=== PATIENT | male | born 1995 | race Caucasian/White ===

== ENCOUNTER 2016-10-20 11:04 | Emergency (ER) | payer OTHER ==
[2016-10-20 11:11] VITALS: BP 138/81; BMI 33.0
[2016-10-20] MEDS ORDERED: NORFLEX INJ IM ONE (13:15)
[2016-10-20] MEDS ORDERED: TORADOL 60 MG VIAL IM ONE (13:15)
--- NOTE | 2016-10-20 13:15 | DR.GENAD ---
HPI - PCP Primary Care Physician: ANKITA - HPI Comment HPI Comment: PATIENT HAVING INCREASING PAIN SINCE INJURY. NO HISTORY OF BACK PROBLEMS. NO DYSURIA. - Complaint/Symptoms Chief Complaint Doctors Comments: LOWER BACK PAIN. PATIENT INJURED BACK LIFTING AT WORK TODAY. Chief Complaint:: BACK PAIN, PT STATES HE HURT HIS BACK AT WORK LIFTING A CRATE - Nurses notes reviewed Nurses Notes Review: Yes - Source History Provided: Patient - Mode of Arrival Mode of Arrival: Ambulatory - Timing Onset of Chief Complaint: 10/20/16 Came on: Suddenly - Duration Duration: Constant Duration: Hours - Severity Severity: Moderate PMH - PMH Past Medical History: No Past Surgical History: Yes Surgical History: Cholecystectomy, Tonsillectomy - Family History History of Family Medical Conditions: Yes Family Medical History: Diabetes Mellitus - Social History Does patient currently use any type of tobacco product: Yes Have you used tobacco products in the last 12 months: Yes Type of Tobacco Use: Cigarettes How many years tobacco product used: 1 Does any household member use tobacco: No Alcohol Use: Rarely Do you use any recreational Drugs:: No Lives With: Family Lives Where: Home - infectious screening In the last 2 months have you had wt loss of >10#?: NO Have you had fever, night sweats or hemotysis?: No Have you traveled outside the country in the last 6 months?: No Isolation: Standard ROS - Review of Systems Constitutional: No Symptoms Reported Eyes: No Symptoms Reported ENTM: No Symptoms Reported Respiratoy: No Symptoms Reported Cardiovascular: No Symptoms Reported Gastrointestinal/Abdominal: No Symptoms Reported Genitourinary: No Symptoms Reported Neurological: No Symptoms Reported Musculoskeletal: Back Pain, Back (LOWER BACK PAIN) Integumentary: No Symptoms Reported Hematologic/Lymphatic: No Symptoms Reported Endocrine: No Symptoms Reported All Other Systems: Reviewed and Negative PE - Vital Signs Vitals: Temperature 97.6 F Pulse Rate 86 Respiratory Rate 20 Blood Pressure 138/81 O2 Sat by Pulse Oximetry 98 - General Limitations: No Limitations General Appearance: Alert - Head Head Exam: Normal Inspection - Eyes Eye exam: Normal Appearance - ENT ENT Exam: Normal External Ear Exam External Ear Exam: Normal External Inspection TM/Canal Exam: Bilateral Normal Nose Exam: Normal Nose Exam Mouth Exam: Normal Inspection Throat Exam: Normal Inspection - Neck Neck Exam: Trachea Midline - Chest Chest Inspection: Symmetric Chest Wall Rise - Respiratory Respiratory Exam: Normal Lung Sounds Bilat Respiratory Exam: Bilateral Clear to Auscultation - Cardiovascular Cardiovascular Exam: Regular Rate, Normal Rhythm, Normal Heart Sounds - Abdominal Exam Abdominal Exam: Normal Bowel Sounds, Soft. negative: Tenderness - Extremities Extremities Exam: Normal Inspection - Back Back Exam: Paraspinal Tenderness (LOWER BACK), Vertebral Tenderness (LOWER BACK. ) - Neurologic Neurological Exam: Alert, Oriented X3, CN II-XII Intact, Normal Gait, Reflexes Normal. negative: Motor Sensory Deficit - Psychiatric Psychiatric Exam: Anxious - Skin Skin Exam: Normal Color MDM - Differential Diagnosis Differential Diagnosis: LOWER BACK STRAIN, SPRAIN, FRACTURE Course - Treatment Treatment: SEE ORDERS. PATIENT PAIN DECREASING AFTER IM MEDS - Reevaluation 1st: Improved - Education/Counseling Education/Counseling: Patient, Education Educated On: Treatment, Diagnosis, Needs for Follow Up ROR - XRAY XRAY Interpreted by: Radiologist XRAY Findings: REPORT DISCUSS WITH PATIENT. - Diagnosis Discharge Problem: Low back pain Qualifiers: Chronicity: acute Back pain laterality: unspecified Sciatica presence: without sciatica Qualified Code(s): M54.5 - Low back pain Low back strain Qualifiers: Encounter type: initial encounter Qualified Code(s): S39.012A - Strain of muscle, fascia and tendon of lower back, initial encounter - Discharge Plan Disposition: HOME, SELF-CARE Condition: Stable Prescriptions: Cyclobenzaprine HCl [FLEXERIL 10 MG *] 10 mg PO TID PRN #20 tab PRN Reason: Ibuprofen [MOTRIN TAB 800 MG *] 800 mg PO Q8H PRN #20 tab PRN Reason: Pain/Inflammation - Follow ups/Referrals Follow ups/Referrals: NFD,None [Primary Care Provider] - 3 days FARZAD PALACIOS [STAFF PHYSICIAN] - 3 days - Instructions Instructions: Back Pain, Adult, [id number], Low Back Strain With Rehab- [facility] Additional Instructions: RETURN TO ED IF WORSE.
[2016-10-20] MEDS ORDERED: NORFLEX INJ ONE (13:56)
[2016-10-20] MEDS ORDERED: TORADOL 60 MG VIAL ONE (13:56)
--- NOTE | 2016-10-20 14:11 | RAD ---
HISTORY: Low back pain Study: Five views lumbar spine Comparison: None Findings: Normal alignment of the lumbar spine is maintained. Vertebral body heights are preserved. The disc spaces appear normal.No evidence for acute fracture or subluxation. Cholecystectomy clips are noted. IMPRESSION: 1. Negative lumbar radiographs. Reported By:
== END 2016-10-20 14:28 | disposition home or self-care (01) ==
LOC: ER 11:45
DX: S39.012A Strain of muscle, fascia and tendon of lower back, initial encounter (principal); M54.5 Low back pain; X50.0XXA Overexertion from strenuous movement or load, initial encounter; Y92.69 Other specified industrial and construction area as the place of occurrence of the external cause
CPT/HCPCS: 72110; 80305; 96372; 99282; 99283; J1885; J2360

== ENCOUNTER 2017-05-09 14:53 | Emergency (ER) | payer SELFPAY ==
[2017-05-09 14:57] VITALS: BP 128/69; BMI 33.0
[2017-05-09] MEDS ORDERED: DUONEB 0.5 MG/3 MG NEB ONE (17:19)
--- NOTE | 2017-05-09 17:19 | DR.GENAD ---
HPI - PCP Primary Care Physician: none - Complaint/Symptoms Chief Complaint Doctors Comments: Patient presents with complaint of cough, congestion and low grade fever. he admits to 1ppd smoking Chief Complaint:: "Hurting in my head and throat and i cant breath" - Source History Provided: Patient - Mode of Arrival Mode of Arrival: Ambulatory - Timing Onset of Chief Complaint: 05/07/17 PMH - PMH Past Medical History: No Past Surgical History: Yes Surgical History: Cholecystectomy - Family History History of Family Medical Conditions: Yes Family Medical History: Diabetes Mellitus - Social History Does patient currently use any type of tobacco product: Yes Have you used tobacco products in the last 12 months: Yes Type of Tobacco Use: Cigarettes How many years tobacco product used: 2 Does any household member use tobacco: No Alcohol Use: None Do you use any recreational Drugs:: No Lives With: Family Lives Where: Home - infectious screening In the last 2 months have you had wt loss of >10#?: NO Have you had fever, night sweats or hemotysis?: No Have you traveled outside the country in the last 6 months?: No Isolation: Standard ROS - Review of Systems Eyes: No Symptoms Reported ENTM: No Symptoms Reported Respiratoy: See HPI, Non-Productive Cough Cardiovascular: No Symptoms Reported Gastrointestinal/Abdominal: No Symptoms Reported Genitourinary: No Symptoms Reported Neurological: No Symptoms Reported Musculoskeletal: No Symptoms Reported Integumentary: No Symptoms Reported Hematologic/Lymphatic: No Symptoms Reported Endocrine: No Symptoms Reported Psychiatric: No Symptoms Reported All Other Systems: Reviewed and Negative PE - Vital Signs Vitals: Temperature 98 F Pulse Rate 105 Respiratory Rate 18 Blood Pressure 128/69 O2 Sat by Pulse Oximetry 99 - General General Appearance: Alert, In No Apparent Distress - Head Head Exam: Normal Inspection, Atraumatic - Eyes Eye exam: Normal Appearance, PERRL, EOMI - ENT ENT Exam: Normal Exam External Ear Exam: Normal External Inspection TM/Canal Exam: Bilateral Normal Nose Exam: Normal Nose Exam Mouth Exam: Normal Inspection Throat Exam: Normal Inspection - Neck Neck Exam: Normal Inspection, Full ROM - Chest Chest Inspection: Normal Inspection - Respiratory Respiratory Exam: Normal Lung Sounds Bilat Respiratory Exam: Bilateral Wheezing (prlong expiratory phase) - Cardiovascular Cardiovascular Exam: Regular Rate, Normal Rhythm - Abdominal Exam Abdominal Exam: Normal Inspection Abdominal Tenderness: negative: RUQ, RLQ, LUQ, LLQ, Epigastrium, Suprapubic, Diffuse, Mild, Moderate, Severe, Other - Extremities Extremities Exam: Normal Inspection, Full ROM - Back Back Exam: Normal Inspection, Full ROM - Neurologic Neurological Exam: Alert, Oriented X3, CN II-XII Intact - Psychiatric Psychiatric Exam: Normal Affect, Normal Mood Course - Treatment Treatment: DuoNed, cleared - Education/Counseling Education/Counseling: Education Educated On: Treatment, Diagnosis, Prognosis ROR - Labs Reviewed Laboratory: S. pyogenes (TEM-PCR) Not detected (NOT DETECT) 05/09/17 17:16 - Diagnosis Discharge Problem: Acute bronchitis Qualifiers: Bronchitis organism: unspecified organism Qualified Code(s): J20.9 - Acute bronchitis, unspecified - Discharge Plan Condition: Stable - Follow ups/Referrals Follow ups/Referrals: NFD,None [Primary Care Provider] - 3 days - Instructions
[2017-05-09] MEDS ORDERED: DUONEB 0.5 MG/3 MG ONE (17:24)
== END 2017-05-09 18:08 | disposition home or self-care (01) ==
LOC: ER 15:04
DX: J20.9 Acute bronchitis, unspecified (principal)
CPT/HCPCS: 87651; 94640; 99282; J7620